=== PATIENT | male | born 1995 | race American Indian/Alaskan Native ===

== ENCOUNTER 2018-11-24 10:20 | Emergency (ER) | payer MEDICAID, OTHER ==
[2018-11-24 10:22] VITALS: BMI 23.0
[2018-11-24 10:23] VITALS: RESP 18; O2SAT 99
[2018-11-24] MEDS ORDERED: Sodium Chloride 0.9% 1,000 ML IV STA (11:36)
[2018-11-24] MEDS ORDERED: Iohexol 240 (50 ml) PO ONE (11:37)
[2018-11-24] MEDS ORDERED: Iohexol 240 (50 ml) ONE (12:08)
[2018-11-24 12:25] LABS: BASO % 0.1 % (0.0-2.0); EOS % 0.5 % (0.0-4.0); HEMOGLOBIN 15.2 g/dL (12.0-18.0); LYMPH # 0.5 K/uL (1.0-4.3); LYMPH % 6.4 % (20.0-40.0); MEAN CELL VOLUME 89.4 fl (80.0-94.0); MEAN CORPUSCULAR HEMOGLOBIN 29.2 pg (27.0-31.0); MEAN CORPUSCULAR HGB CONC 32.7 g/dL (33.0-37.0); MEAN PLATELET VOLUME 11.2 fl (7.2-11.7); MONO # 0.8 K/uL (0.0-0.8); MONO % 11.1 % (0.0-10.0); NEUT # 6.3 K/uL (1.8-7.0); NEUT % 81.9 % (50.0-75.0); PLATELET COUNT 105 K/uL (130-400); WHITE BLOOD COUNT 7.7 K/uL (4.8-10.8)
[2018-11-24 12:28] LABS: SQUAMOUS EPITHIAL 1 /hpf (0-5); URINE BACTERIA RARE (<OCC); URINE BILIRUBIN NEGATIVE (NEGATIVE); URINE BLOOD NEGATIVE (NEGATIVE); URINE CLARITY SLIGHTY-CLOUDY (Clear); URINE COLOR YELLOW (YELLOW); URINE GLUCOSE (UA) NEG (NEGATIVE); URINE LEUKOCYTE ESTERASE TRACE Leu/uL (Negative); URINE PROTEIN NEGATIVE (NEGATIVE); URINE UROBILINOGEN 0.2-1.0 mg/dL (0.2-1.0)
[2018-11-24 12:34] LABS: ALB/GLOB RATIO 1.5 (1.0-2.1); ALBUMIN 4.7 g/dL (3.5-5.0); ALT/SGPT 30 U/L (21-72); AST/SGOT 21 U/L (17-59); BLOOD UREA NITROGEN 5 mg/dl (9-20); CALCIUM 9.9 mg/dL (8.4-10.2); GFR NON-AFRICAN AMERICAN > 60; LIPASE 34 U/L (23-300)
--- NOTE | 2018-11-24 13:39 | ED PDOC ---
HPI: Abdomen Time Seen by Provider: 11/24/18 11:38 Chief Complaint (Nursing): Abdominal Pain Chief Complaint (Provider): abd pain History Per: Patient History/Exam Limitations: no limitations Onset/Duration Of Symptoms: Days, Intermittent Episodes Outside of [place] travel?: No Current Symptoms Are (Timing): Still Present Severity: Moderate Pain Scale Rating Of: 7 Location Of Pain/Discomfort: Diffuse Quality Of Discomfort: Other (heaviness) Associated Symptoms: Nausea. denies: Fever, Chills, Vomiting, Diarrhea, Loss Of Appetite, Back Pain, Chest Pain, Constipation Exacerbating Factors: Food Alleviating Factors: denies: None Last Bowel Movement: Today (normal color and formed as per patient.) Additional Complaint(s): 23 y/o male with no medical hx presents to the ED c/o diffuse lower abd pain for two days. Patient states having similar symptoms a month ago, patient states he was evaluated but no definitive dx made. Pt has not take meds for pain. He states he has an appetite. Denies n/v/diarrhea, fever, sob, chest pain, urinary complaints. Past Medical History Vital Signs: Last Vital Signs Temp 98.1 F 11/24/18 10:22 Pulse 55 L 11/24/18 10:22 Resp 18 11/24/18 10:22 BP 122/77 11/24/18 10:22 Pulse Ox 99 11/24/18 10:22 - Medical History PMH: Asthma - Surgical History Surgical History: No Surg Hx - Family History Family History: States: Unknown Family Hx - Social History Alcohol: None Drugs: Cannabis - Immunization History Hx Tetanus Toxoid Vaccination: No Hx Influenza Vaccination: Yes Hx Pneumococcal Vaccination: No - Home Medications Home Medications: Ambulatory Orders Medication Instructions Recorded Famotidine [Pepcid] 20 mg PO HS #30 tab 11/24/18 - Allergies Allergies/Adverse Reactions: Allergies Allergy/AdvReac Type Severity Reaction Status Date / Time weed pollen Allergy Mild CONGESTION Verified 11/24/18 10:38 Review of Systems Constitutional: Negative for: Fever, Chills, Sweats, Malaise, Weight loss Gastrointestinal: Positive for: Abdominal Pain ("heaviness" to the center of the abd ). Negative for: Nausea, Vomiting Genitourinary Male: Negative for: Dysuria, Hematuria Musculoskeletal: Negative for: Neck Pain Skin: Negative for: Rash Neurological: Negative for: Weakness Physical Exam - Reviewed Nursing Documentation Reviewed: Yes Vital Signs Reviewed: Yes - Physical Exam Appears: Positive for: Well, Non-toxic, No Acute Distress Head Exam: Positive for: ATRAUMATIC, NORMAL INSPECTION, NORMOCEPHALIC Skin: Positive for: Normal Color, Warm, DRY Eye Exam: Positive for: EOMI, Normal appearance, PERRL ENT: Positive for: Normal ENT Inspection Neck: Positive for: Normal, Painless ROM, Supple Cardiovascular/Chest: Positive for: Regular Rate, Rhythm, Chest Non Tender Respiratory: Positive for: CNT, Normal Breath Sounds Pulses-Radial (L): 2+ Pulses-Radial (R): 2+ Gastrointestinal/Abdominal: Positive for: Normal Exam, Bowel Sounds (normactive ), Soft, Tenderness (diffuse tenderness upper abd ). Negative for: Mass, Guarding Back: Positive for: Normal Inspection. Negative for: L CVA Tenderness, R CVA Tenderness Extremity: Positive for: Normal ROM Neurological/Psych: Positive for: Awake, Alert, Normal Tone, Oriented, Other - Laboratory Results Result Diagrams: 11/24/18 11:55 11/24/18 11:55 Lab Results: Total Bilirubin 0.3 mg/dl (0.2-1.3) 11/24/18 11:55 AST 21 U/L (17-59) 11/24/18 11:55 ALT 30 U/L (21-72) 11/24/18 11:55 Alkaline Phosphatase 72 U/L (38-126) 11/24/18 11:55 Total Protein 7.8 G/DL (6.3-8.2) 11/24/18 11:55 Albumin 4.7 g/dL (3.5-5.0) 11/24/18 11:55 Globulin 3.1 gm/dL (2.2-3.9) 11/24/18 11:55 Albumin/Globulin Ratio 1.5 (1.0-2.1) 11/24/18 11:55 Lipase 34 U/L (23-300) 11/24/18 11:55 Urine Color Yellow (YELLOW) 11/24/18 11:12 Urine Clarity Slighty-cloudy (Clear) 11/24/18 11:12 Urine pH 8.0 (5.0-8.0) 11/24/18 11:12 Ur Specific [place] 1.018 (1.003-1.030) 11/24/18 11:12 Urine Protein Negative mg/dL (NEGATIVE) 11/24/18 11:12 Urine Glucose (UA) Neg mg/dL (NEGATIVE) 11/24/18 11:12 Urine Ketones Negative mg/dL (NEGATIVE) 11/24/18 11:12 Urine Blood Negative (NEGATIVE) 11/24/18 11:12 Urine Nitrate Negative (NEGATIVE) 11/24/18 11:12 Urine Bilirubin Negative (NEGATIVE) 11/24/18 11:12 Urine Urobilinogen 0.2-1.0 mg/dL (0.2-1.0) 11/24/18 11:12 Ur Leukocyte Esterase Trace Butch/uL (Negative) 11/24/18 11:12 Urine RBC (Auto) 5 /hpf (0-3) H 11/24/18 11:12 Urine Microscopic WBC 11 /hpf (0-5) H 11/24/18 11:12 Ur Squamous Epith Cells 1 /hpf (0-5) 11/24/18 11:12 Urine Bacteria Rare (<OCC) 11/24/18 11:12 - ECG O2 Sat by Pulse Oximetry: 99 - Progress ED Course And Treament: Prior to exam pt was walking out of the ED, pt was escorted back by security 13:37: Patient requesting to leave, he states he feels better after meds and ivf. he is refusing to stay for CT Mcdaniel abd/pelvis as ordered. --pt explained the risks of leaving with out proper imaging to determine probable cause of abd pain. Pt states he understands, nurse Christian witness of explanation. Dr. Espinosa made aware. labs were reviewed by me and pt abd was reasessed, non tender at this time. Pt signed out AMA. given return to ed precautions, rx given for pepcis 20mg po. Re-evaluation Time: 13:37 Condition: Re-examined Medical Decision Making Medical Decision Making: CBC CMP LIPASE PEPCID TORADOL 0.9NS L BOLUS CT ABD/PELVIS Disposition - Clinical Impression Clinical Impression: Abdominal pain - Patient ED Disposition Is Patient to be Admitted: No Counseled Patient/Family Regarding: Diagnosis, Rx Given - Disposition Disposition: Against Medical Advice Disposition Time: 13:37 Condition: IMPROVED Prescriptions: Famotidine [Pepcid] 20 mg PO HS #30 tab Instructions: Acute Abdomen (Belly Pain) Forms: [facility] ED School/Work Excuse Print Language: KAZAKH - POA Present On Arrival: None
[2018-11-24 14:10] VITALS: BP 118/68; PULSE 59; TEMP 98.5
[2018-11-24 14:29] LABS: LYMPHOCYTE 9 % (20-50); MONOCYTE 9 % (0-10); NEUTROPHIL 82 % (42-75); TOTAL CELLS COUNTED 100
[2018-11-24 14:39] LABS: GIANT PLATELETS PRESENT; PLATELET ESTIMATE DECREASED (NORMAL)
== END 2018-11-24 13:45 | disposition left against medical advice (07) ==
LOC: H.ER 10:20
DX: R10.9 Unspecified abdominal pain (principal)
CPT/HCPCS: 80053; 81003; 83690; 85025; 96374; 96375; 99283; J1885; J7030; Q9966